=== PATIENT | female | born 1960 | race Caucasian/White ===

== ENCOUNTER 2018-03-13 10:43 | Emergency (ER) | payer OTHER ==
[2018-03-13] MEDS ORDERED: MECLIZINE HCL 25 MG TAB PO ONE (11:52)
[2018-03-13] MEDS ORDERED: NS 1,000 ML IV ONE (11:52)
--- NOTE | 2018-03-13 12:10 | EDPHY ---
H & P Stated Complaint: dizzy/nausea/neck pn since AM. Room spinning. Time Seen by Provider: 03/13/18 11:50 HPI/ROS: CHIEF COMPLAINT: Room spinning sensation HISTORY OF PRESENT ILLNESS: 57-year-old female presents with vertigo. She awoke this morning with a room spinning sensation, associated with nausea. The vertigo worsens with head movement and position change. Alleviated with remaining still. Starting to feel better. No DOLAN, weakness, recent illness. No prior similar symptoms. REVIEW OF SYSTEMS: complete 10 point ROS reviewed and is negative except for the noted elements in the HPI - Personal History Current Tetanus/Diphtheria Vaccine: Yes - Medical/Surgical History Hx Asthma: No Hx Chronic Respiratory Disease: No Hx Diabetes: Yes Hx Cardiac Disease: No Hx Renal Disease: No Hx Cirrhosis: No Hx Alcoholism: No Hx HIV/AIDS: No Hx Splenectomy or Spleen Trauma: No Other PMH: HTN, NIDDM, Sleep apnea - Social History Smoking Status: Never smoked Constitutional: Initial Vital Signs Temperature (C) 36.4 C 03/13/18 11:03 Heart Rate 69 03/13/18 11:03 Respiratory Rate 18 03/13/18 11:03 Blood Pressure 155/98 H 03/13/18 11:03 O2 Sat (%) 96 03/13/18 11:03 O2 Delivery Mode Room Air Allergies/Adverse Reactions: No Known Allergies Allergy (Unverified 03/13/18 11:55) Home Medications: Medication Instructions Recorded Lisinopril 03/13/18 Meclizine HCl [Meclizine HCl 25 mg 25 mg PO TID PRN #15 tab 03/13/18 (RX,OTC)] Victoza 3-Jigar 03/13/18 Medical Decision Making - Diagnostics EKG Interpretation: EKG interpreted by me reveals normal sinus rhythm, rate 65, right bundle branch block. Interpretation: Abnormal EKG ED Course/Re-evaluation: This patient presents with vertigo. Neurologic exam is normal and there are no concerning signs or symptoms suggestive of a central etiology for vertigo. Stat EKG reveals no evidence of ischemia or dysrhythmia. Meclizine 25 mg orally given. 1:00 p.m.-vertigo has almost completely resolved. Neurologic exam remains normal. Clinical presentation consistent with peripheral etiology of vertigo. Will discharge home. Warning signs discussed. Differential Diagnosis: Differential diagnosis includes TIA, stroke, intracranial hemorrhage, tumor, electrolyte abnormality and acute labyrinthitis. - Data Points Laboratory Results: Laboratory Results 03/13/18 12:02 03/13/18 12:02 03/13/18 03/13/18 12:02 12:02 WBC 9.18 10^3/uL 10^3/uL (3.80-9.50) RBC 5.97 10^6/uL H 10^6/uL (4.18-5.33) Hgb 15.3 g/dL g/dL (12.6-16.3) Hct 46.6 % % (38.0-47.0) MCV 78.1 fL L fL (81.5-99.8) MCH 25.6 pg L pg (27.9-34.1) MCHC 32.8 g/dL g/dL (32.4-36.7) RDW 17.4 % H % (11.5-15.2) Plt Count 324 10^3/uL 10^3/uL (150-400) MPV 10.0 fL fL (8.7-11.7) Neut % (Auto) 67.7 % % (39.3-74.2) Lymph % (Auto) 25.4 % % (15.0-45.0) Angelina % (Auto) 5.1 % % (4.5-13.0) Eos % (Auto) 1.3 % % (0.6-7.6) Baso % (Auto) 0.4 % % (0.3-1.7) Nucleat RBC Rel Count 0.0 % % (0.0-0.2) Absolute Neuts (auto) 6.21 10^3/uL 10^3/uL (1.70-6.50) Absolute Lymphs (auto) 2.33 10^3/uL 10^3/uL (1.00-3.00) Absolute Monos (auto) 0.47 10^3/uL 10^3/uL (0.30-0.80) Absolute Eos (auto) 0.12 10^3/uL 10^3/uL (0.03-0.40) Absolute Basos (auto) 0.04 10^3/uL 10^3/uL (0.02-0.10) Absolute Nucleated RBC 0.00 10^3/uL 10^3/uL (0-0.01) Immature Gran % 0.1 % % (0.0-1.1) Immature Gran # 0.01 10^3/uL 10^3/uL (0.00-0.10) Sodium 139 mEq/L mEq/L (135-145) Potassium 4.7 mEq/L mEq/L (3.3-5.0) Chloride 105 mEq/L mEq/L (97-110) Carbon Dioxide 25 mEq/l mEq/l (22-31) Anion Gap 9 mEq/L mEq/L (8-16) BUN 19 mg/dL mg/dL (7-23) Creatinine 0.6 mg/dL mg/dL (0.6-1.0) Estimated GFR > 60 Glucose 177 mg/dL H mg/dL (70-100) Calcium 9.5 mg/dL mg/dL (8.5-10.4) Medications Given: Discontinued Medications Sodium Chloride (Ns) 1,000 mls @ 0 mls/hr IV EDNOW ONE; Wide Open PRN Reason: Protocol Stop: 03/13/18 11:53 Last Admin: 03/13/18 12:19 Dose: 1,000 mls Meclizine HCl (Meclizine Hcl) 25 mg PO EDNOW ONE Stop: 03/13/18 11:53 Last Admin: 03/13/18 12:19 Dose: 25 mg Departure - Departure Disposition: Home, Routine, Self-Care Clinical Impression: Vertigo Condition: Good Instructions: Vertigo (ED) Additional Instructions: Return for worsening symptoms or any concerns. Referrals: Sera Omer MD [Primary Care Provider] - As per Instructions Prescriptions: Meclizine HCl [Meclizine HCl 25 mg (RX,OTC)] 25 mg PO TID PRN #15 tab PRN Reason: Dizziness
[2018-03-13 12:11] LABS: PLATELET COUNT 324 10^3/uL (150-400)
[2018-03-13 13:18] VITALS: BP 155/103
--- NOTE | 2018-03-13 14:18 | CPEKG ---
Test Reason : OPEN Blood Pressure : / mmHG Vent. Rate : 065 BPM Atrial Rate : 066 BPM P-R Int : 165 ms QRS Dur : 143 ms QT Int : 457 ms P-R-T Axes : 021 070 009 degrees QTc Int : 476 ms Sinus rhythm Right bundle branch block Confirmed by Tia Garcia ([id number]) on 03/13/2018 2:18:14 PM Referred By: Confirmed By:Tia Garcia
== END 2018-03-13 13:17 | disposition home or self-care (01) ==
DX: R42 Dizziness and giddiness (principal); M54.2 Cervicalgia; I10 Essential (primary) hypertension; E11.9 Type 2 diabetes mellitus without complications; G47.33 Obstructive sleep apnea (adult) (pediatric)